=== PATIENT | female | born 1955 | race Caucasian/White ===

== ENCOUNTER 2016-12-11 10:45 | Outpatient (RCR) | payer OTHER ==
[~2016-12-11 10:45] MED LIST: ACTIGALL 300MG300 MG PO; ASPIRIN 32325 MG/TAB PO; CITRICAL PO; DIOVAN320 MG PO; GLUCOSAMINE 1000 PO; LANTUS100 U/ML SC; MULTIPLE VITAMI1 TA5 PO; NORCO 325 MG-51 TAB PO; NORVASC 5MG5 MG/TAB PO; NOVOLOG 100U100 U/M1 SQ
== END 2016-12-12 | disposition still patient (30) ==
LOC: WSOT
DX: S62.605D Fracture of unspecified phalanx of left ring finger, subsequent encounter for fracture with routine healing (principal); X58.XXXD Exposure to other specified factors, subsequent encounter

== ENCOUNTER 2017-01-02 10:45 | Outpatient (RCR) | payer OTHER | END 2017-01-03 08:21 | disposition home or self-care (01) | LOC: WSOT 10:45 | DX: S62.605D Fracture of unspecified phalanx of left ring finger, subsequent encounter for fracture with routine healing (principal); X58.XXXD Exposure to other specified factors, subsequent encounter ==

== ENCOUNTER → 2017-01-23 | Outpatient (CLI) | payer OTHER | LOC: COL.RAD 07:30 | DX: R11.0 Nausea (principal) | CPT/HCPCS: A9541 ==

== ENCOUNTER → 2022-04-11 | Outpatient (CLI) | payer OTHER | LOC: COL.RAD 07:34 | DX: R10.84 Generalized abdominal pain (principal); E11.9 Type 2 diabetes mellitus without complications | CPT/HCPCS: A9541 ==

== ENCOUNTER → 2022-05-03 | Outpatient (CLI) | payer MEDICARE, OTHER | LOC: COL.RAD 06:50 | DX: K74.3 Primary biliary cirrhosis (principal) ==